=== PATIENT | male | born 1980 | race Two or more races ===

== ENCOUNTER 2018-09-05 12:06 | Emergency (ER) | payer SELFPAY ==
[2018-09-05] MEDS ORDERED: FAMOTIDINE INJ/PF 20 MG/2 ML SDV IV ONE (12:13)
[2018-09-05] MEDS ORDERED: DEXAMETHASONE SOD PHOS INJ 10 MG/1 ML VIAL IV ONE (12:13)
[2018-09-05] MEDS ORDERED: LEVETIRACETAM 1000 MG/NACL-ISO 1,000 MG/100 ML RTUPB IV ONE (12:14)
[2018-09-05] MEDS ORDERED: DIPHENHYDRAMINE HCL 50 MG/ML VIAL IV ONE (12:14)
--- NOTE | 2018-09-05 12:15 | ER Document Report ---
ED Oral Problem - General Chief Complaint: Swelling of Tongue Stated Complaint: TONGUE/THROAT SWELLING Time Seen by Provider: 09/05/18 12:12 Primary Care Provider: KVNG BO MD [NO LOCAL MD] - Follow up in 1 week TING PAULA DO [ASSOCIATE] - Follow up in 1 week Notes: This is a 37-year-old male brought into the emergency department for evaluation of tongue swelling. Patient awoke to have a extremely swollen tongue. Thinks that maybe he had a seizure. No prior history of seizures. Apparently patient had major trauma and was seen at trauma center a few years ago. Family members state that he had significant head injuries and neck injuries at that time. They think that he may be having seizures. He has been observed at the house twitching on occasions. Patient denies any other trauma. Denies any history of bleeding or other issues. - HPI Patient complains to provider of: Other - Swelling to the tongue. Quality of pain: Throbbing Severity: Moderate Pain Level: 3 Associated symptoms: Other - Significant bruising and swelling to the tongue with swelling. - Related Data Allergies/Adverse Reactions: Olives Allergy (Uncoded 09/05/18 12:19) Past Medical History - General Information source: Patient - Social History Smoking Status: Former Smoker Frequency of alcohol use: None Drug Abuse: None Lives with: Family Family History: Reviewed & Not Pertinent - Medical History Medical History: Negative Review of Systems - Review of Systems Notes: Constitutional: denies: Chills, Diaphoresis, Fever, Malaise, Weakness EENT: denies: Eye discharge, Blurred vision, Tearing, Double vision, Nose congestion, Nose discharge, Throat swelling, + significant for tongue swelling. Positive mouth pain Cardiovascular: denies: Palpitations, Heart racing, Orthopnea, Dyspnea, Chest pain Respiratory: denies: Cough, Hurts to breathe, Wheezing, Shortness of breath Gastrointestinal: denies: Abdominal pain, Diarrhea, Nausea, Vomiting, Black stools, bright red blood in stool Genitourinary: denies: Burning, Dysuria, Discharge, Frequency, Flank pain, Hematuria Musculoskeletal: denies: Joint pain, Joint swelling, Muscle pain, Muscle stiffness, back pain Hematologic/Lymphatic: denies: Anemia, Easy bleeding, Easy bruising, Blood clots Neurological/Psychological: denies: Confusion, Dementia, Depression, Loss of consciousness.? Seizures Skin: No lesions, no masses, no skin breakdown, no abscesses Physical Exam - Vital signs Vitals: Pulse Resp BP Pulse Ox 78 14 144/98 H 95 09/05/18 12:19 09/05/18 12:19 09/05/18 12:19 09/05/18 12:19 Interpretation: Normal - General General appearance: Appears well, Alert - HEENT Head: Normocephalic, Atraumatic Eyes: Normal Pupils: PERRL Notes: The posterior pharynx is normal. The tongue demonstrates marketed edema mostly on the left side with bruising and swelling. Appears traumatic. There is no swelling under the tongue. - Respiratory Respiratory status: No respiratory distress Chest status: Nontender Breath sounds: Normal Chest palpation: Normal - Cardiovascular Rhythm: Regular Heart sounds: Normal auscultation Murmur: No - Abdominal Inspection: Normal Distension: No distension Bowel sounds: Normal Tenderness: Nontender Organomegaly: No organomegaly - Back Back: Normal, Nontender - Extremities General upper extremity: Normal inspection, Nontender, Normal color, Normal ROM, Normal temperature General lower extremity: Normal inspection, Nontender, Normal color, Normal ROM, Normal temperature, Normal weight bearing. No: Kia's sign - Neurological Neuro grossly intact: Yes Cognition: Normal Orientation: AAOx4 John Coma Scale Eye Opening: Spontaneous [place] Coma Scale Verbal: Oriented John Coma Scale Motor: Obeys Commands John Coma Scale Total: 15 Speech: Normal Motor strength normal: LUE, RUE, LLE, RLE Sensory: Normal - Psychological Associated symptoms: Normal affect, Normal mood - Skin Skin Temperature: Warm Skin Moisture: Dry Skin Color: Normal Course - Re-evaluation Re-evalutation: 09/05/18 13:36 Patient potentially had a seizure and bit his tongue. With his reported history of head trauma it is possible. Due to the type of injury I am seeing to his tongue more likely this was a bite injury. I treating to be safe with typical angioedema type medications but more likely this is just a traumatic injury to the tongue. Will consult with ENT. We will get imaging study of the brain and the soft tissues of the face and neck. 09/05/18 13:37 Laboratory 09/05/18 09/05/18 09/05/18 12:15 12:15 12:15 WBC 15.7 H RBC 4.66 Hgb 15.3 Hct 44.7 MCV 96 MCH 32.8 MCHC 34.2 RDW 14.0 Plt Count 240 Seg Neutrophils % 85.1 H Lymphocytes % 9.0 L Monocytes % 5.3 Eosinophils % 0.3 Basophils % 0.3 Absolute Neutrophils 13.4 H Absolute Lymphocytes 1.4 Absolute Monocytes 0.8 Absolute Eosinophils 0.0 Absolute Basophils 0.0 PT 12.4 INR 0.88 APTT 29.7 Sodium 146.5 H Potassium 4.2 Chloride 107 Carbon Dioxide 26 Anion Gap 14 BUN 13 Creatinine 1.11 Est GFR ( Amer) > 60 Est GFR (Non-Af Amer) > 60 Glucose 113 H Calcium 10.3 H Total Bilirubin 0.5 Direct Bilirubin 0.3 Neonat Total Bilirubin Not Reportable Neonat Direct Bilirubin Not Reportable Neonat Indirect Bili Not Reportable AST 53 ALT 53 Alkaline Phosphatase 84 Total Protein 8.3 H Albumin 5.0 I have spoken to ENT, Dr. Paula. He has reviewed the films. He does recommend proceed with outpatient steroids, antibiotics. I have given him an initial dose of IV antibiotics and Keppra here. In the absence of any trauma with the bite to the tongue that potential for seizure is high. I have started on the seizure medicine. Patient will need to be seen outpatient neurologist. I have recommended that he do not drive. Take the antibiotics and the steroids as instructed. Incidentally, a abnormal finding on CT scan of the thyroid was r evealed. I have ordered thyroid function studies. I will order an outpatient ultrasound of the thyroid. Dr. Paula will follow up as an outpatient in 2 weeks - Vital Signs Vital signs: Temp Pulse Resp BP Pulse Ox 78 20 132/83 H 94 09/05/18 12:19 09/05/18 14:23 09/05/18 14:23 09/05/18 14:23 - Laboratory Result Diagrams: 09/05/18 12:15 09/05/18 12:15 Laboratory results interpreted by me: 09/05/18 09/05/18 12:15 12:15 WBC 15.7 H Seg Neutrophils % 85.1 H Lymphocytes % 9.0 L Absolute Neutrophils 13.4 H Sodium 146.5 H Glucose 113 H Calcium 10.3 H Total Protein 8.3 H Discharge - Discharge Clinical Impression: Ulceration (traumatic) of tongue, Seizure-like activity Condition: Good Disposition: HOME, SELF-CARE Instructions: New Seizure ([facility]), Oral Laceration, Not Sutured ([facility]) Prescriptions: Amox Tr/Potassium Clavulanate [Augmentin 875-125 Tablet] 1 tab PO BID 7 Days #14 tablet Dexamethasone [Decadron 4 Mg Tablet] 8 mg PO DAILY 3 Days #6 tablet Levetiracetam [Keppra 500 mg Tablet] 500 mg PO Q12 30 Days #60 tablet Forms: Follow-Up Radiology Testing Referrals: TING PAULA DO [ASSOCIATE] - Follow up in 1 week KVNG BO MD [NO LOCAL MD] - Follow up in 1 week
[2018-09-05 12:29] LABS: ABSOLUTE LYMPHOCYTES (AUTO) 1.4 10^3/uL (0.5-4.7); ABSOLUTE MONOCYTES (AUTO) 0.8 10^3/uL (0.1-1.4); ABSOLUTE NEUT (AUTO) 13.4 10^3/uL (1.7-8.2); BASOPHILS % (AUTO) 0.3 % (0-2); EOSINOPHILS % (AUTO) 0.3 % (0-6); HEMATOCRIT 44.7 % (37.9-51.0); HEMOGLOBIN 15.3 g/dL (13.5-17.0); MEAN CORPUSCULAR HEMOGLOBIN 32.8 pg (27.0-33.4); MEAN CORPUSCULAR HGB CONC 34.2 g/dL (32.0-36.0); MEAN CORPUSCULAR VOLUME 96 fl (80-97); MONOCYTES % (AUTO) 5.3 % (3-13); PLATELET COUNT 240 10^3/uL (150-450); RED BLOOD COUNT 4.66 10^6/uL (4.35-5.55); SEGMENTED NEUTROPHILS % (AUTO) 85.1 % (42-78); TOTAL CELLS COUNTED % (AUTO) 100 %; WHITE BLOOD COUNT 15.7 10^3/uL (4.0-10.5)
[2018-09-05 12:33] LABS: INTERNATIONAL RATION (INR) 0.88; PARTIAL THROMBOPLASTIN TIME 29.7 SEC (23.5-35.8); PROTHROMBIN TIME 12.4 SEC (11.4-15.4)
[2018-09-05 12:52] LABS: ALANINE AMINOTRANSFERASE 53 U/L (21-72); ALKALINE PHOSPHATASE 84 U/L (38-126); ANION GAP 14 (5-19); ASPARTATE AMINO TRANSFERASE 53 U/L (17-59); BILIRUBIN,DIRECT 0.3 mg/dL (0.0-0.4); BILIRUBIN,TOTAL 0.5 mg/dL (0.2-1.3); BLOOD UREA NITROGEN 13 mg/dL (7-20); CALCIUM 10.3 mg/dL (8.4-10.2); CARBON DIOXIDE 26 mmol/L (22-30); CHLORIDE 107 mmol/L (98-107); GLUCOSE 113 mg/dL (75-110); POTASSIUM 4.2 mmol/L (3.6-5.0); SODIUM 146.5 mmol/L (137-145); TOTAL PROTEIN 8.3 g/dL (6.3-8.2)
[2018-09-05] MEDS ORDERED: CEFTRIAXONE 1 GM/D5W RTU 1 GM/50 ML RTUPB IV ONE (14:09)
--- NOTE | 2018-09-05 14:11 | RADIOLOGY REPORT (SQ) ---
EXAM DESCRIPTION: CT HEAD WITHOUT COMPLETED DATE/TIME: 09/05/2018 1:51 pm REASON FOR STUDY: swollen tongue COMPARISON: None. TECHNIQUE: Axial images acquired through the brain without intravenous contrast. Images reviewed wi th bone, brain and subdural windows. Additional sagittal and coronal reconstructions were generated. Images stored on PACS. All CT scanners at this facility use dose modulation, iterative reconstruction, and/or weight based d osing when appropriate to reduce radiation dose to as low as reasonably achievable (ALARA). [facility]: Dose Right [facility]: CareDose [facility]: Dose Right [facility]: Teradose 4D [facility]: [employer] RADIATION DOSE: CT Rad equipment meets quality standard of care and radiation dose reduction techniq ues were employed. CTDIvol: 53.2 mGy. DLP: 1070 mGy-cm. mGy. LIMITATIONS: None. FINDINGS: VENTRICLES: Normal size and contour. CEREBRUM: No masses. No hemorrhage. No midline shift. No evidence for acute infarction. Normal gra y/white matter differentiation. No areas of low density in the white matter. CEREBELLUM: No masses. No hemorrhage. No alteration of density. No evidence for acute infarction. EXTRAAXIAL SPACES: No fluid collections. No masses. ORBITS AND GLOBE: No intra- or extraconal masses. Normal contour of globe without masses. CALVARIUM: No fracture. PARANASAL SINUSES: No fluid or mucosal thickening. SOFT TISSUES: No mass or hematoma. 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 IMPRESSION: 1. No acute intracranial pathology. 2. 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 EVIDENCE OF ACUTE STROKE: NO. COMMENT: Quality ID # 436: Final reports with documentation of one or more dose reduction techniques (e.g., Automated exposure control, adjustment of the mA and/or kV according to patient size, use of iterative reconstruction technique) TECHNICAL DOCUMENTATION: JOB ID: [id number] [employer]- All Rights Reserved Reading location - IP/workstation name: [email or web address]
--- NOTE | 2018-09-05 14:22 | RADIOLOGY REPORT (SQ) ---
EXAM DESCRIPTION: CT SOFT TISSUE NECK WITH COMPLETED DATE/TIME: 09/05/2018 1:51 pm REASON FOR STUDY: swollen tongue COMPARISON: None. TECHNIQUE: Post IV contrasted scanning from skull base through lung apices with review of bone, soft tissue and lung windows. Reconstructed coronal and sagittal MPR images reviewed. All images stored on PACS. All CT scanners at this facility use dose modulation, iterative reconstruction, and/or weight based d osing when appropriate to reduce radiation dose to as low as reasonably achievable (ALARA). [facility]: Dose Right [facility]: CareDose [facility]: Dose Right [facility]: Teradose 4D [facility]: [employer] CONTRAST TYPE AND DOSE: contrast/concentration: Isovue 350.00 mg/ml; Total Contrast Delivered: 75.0 ml; Total Saline Delivered: 55.0 ml RENAL FUNCTION: None required. The patient is less than 50 years old. RADIATION DOSE: CT Rad equipment meets quality standard of care and radiation dose reduction techniq ues were employed. CTDIvol: 18.4 mGy. DLP: 586 mGy-cm. . LIMITATIONS: None. FINDINGS: SKULL BASE: Intact. MAJOR SALIVARY GLANDS: No solid or cystic masses. No inflammatory changes. LYMPHADENOPATHY: No adenopathy. MUCOSAL MASSES OR ASYMMETRY: No mucosal masses or asymmetry. LARYNX/CORDS: No abnormal findings. VASCULAR STRUCTURES: The major vessels are patent. LUNG APICES: Clear. 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 There is a pin or nail like metallic foreign body embedded within the righ t aspect of the mandibular body (series 3, image 53) and additionally within the left aspect of the m axilla (series 3, image 30). THYROID: Normal size. No masses. PARANASAL SINUSES: Clear. OTHER: The tongue is enlarged and edematous appearing. No evidence of focal fluid collection. IMPRESSION: 1. The tongue is enlarged and edematous appearing, consistent with nonspecific infectio us or inflammatory glossitis. No evidence of focal fluid collection. 2. There is a pin or nail like metallic foreign body embedded within the right aspect of the mandibu lar body (series 3, image 53) and additionally within the left aspect of the maxilla (series 3, image 30), of uncertain significance. 3. 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 TECHNICAL DOCUMENTATION: JOB ID: [id number] Quality ID # [id number]: Final reports with documentation of one or more dose reduction techniques (e.g., Au tomated exposure control, adjustment of the mA and/or kV according to patient size, use of iterative reconstruction technique) 2010 [employer]- All Rights Reserved Reading location - IP/workstation name: [email or web address]
[2018-09-05 14:39] LABS: AMORPHOUS SEDIMENT,URINE TRACE /HPF; APPEARANCE,URINE CLOUDY; BILIRUBIN,URINE NEGATIVE (NEGATIVE); COLOR,URINE YELLOW; GLUCOSE, URINE NEGATIVE (NEGATIVE); KETONES,URINE NEGATIVE (NEGATIVE); LEUKOCYTE ESTERASE,URINE NEGATIVE (NEGATIVE); NITRITE,URINE NEGATIVE (NEGATIVE); PROTEIN,URINE NEGATIVE (NEGATIVE); UROBILINOGEN,URINE NEGATIVE mg/dL (<2.0)
[2018-09-05 14:49] LABS: URINE AMPHETAMINES SCREEN NEGATIVE; URINE BARBITURATES SCREEN NEGATIVE; URINE BENZODIAZEPINES SCREEN NEGATIVE; URINE COCAINE SCREEN NEGATIVE; URINE MARIJUANA (THC) SCREEN UNCONFIRMED POSITIVE; URINE METHADONE SCREEN NEGATIVE; URINE PHENCYCLIDINE SCREEN NEGATIVE
[2018-09-05 15:06] VITALS: BP 133/74
[2018-09-05 15:10] LABS: FREE T3 4.32 pg/mL (2.77-5.27); FREE T4 (FREE THYROXINE) 0.85 ng/dL (0.78-2.19)
[2018-09-05 15:24] LABS: THYROID STIMULATING HORMONE 2.49 uIU/mL (0.47-4.68)
== END 2018-09-05 15:06 | disposition home or self-care (01) ==
LOC: ER 12:06
DX: K14.0 Glossitis (principal); R56.9 Unspecified convulsions; R22.0 Localized swelling, mass and lump, head; Z87.891 Personal history of nicotine dependence
CPT/HCPCS: 99284; 96375; 96365; 96367; 36415; 84439; 84443; 85025; 85610; 85730; 80053; 81001; 80307; 84481; 70450; 70491; J1200; S0028; J0696; J1100; J1953

== ENCOUNTER 2019-05-14 20:24 | Emergency (ER) | payer SELFPAY ==
--- NOTE | 2019-05-14 20:34 | ER Document Report ---
ED Medical Screen (RME) - General Chief Complaint: Syncope Stated Complaint: POSSIBLE SEIZURES/BODY TANGLING Time Seen by Provider: 05/14/19 20:28 Mode of Arrival: Ambulatory Information source: Patient Notes: 38-year-old male presents to ED for complaint of possible seizures 4 days ago. He states he woke up in his bed on the floor with his tongue all chewed up and blood all over his shirt. He states he has had numbness and tingling all over both sides of his face arms legs and body that is getting worse so is coming into the emergency room to make sure that he is okay. He states he had a seizure in August and he is on Keppra. He states he took it for the first 3 days after he got out of the hospital for the seizure in August and then did not take it anymore until 4 days ago after he had a seizure. He states he has been drinking 3 beers a day every day and is had beer since he started back up on the Keppra 2 days ago but has not had any since then. He states he did not know he could not drink beer while taking the Keppra. He states about a month ago he felt some pain in his left lower quadrant and then he developed a bulge in that area. He has not gotten it checked out since then. I have greeted and performed a rapid initial assessment of this patient. A comprehensive ED assessment and evaluation of the patient, analysis of test results and completion of medical decision making process will be conducted by an additional ED providers. TRAVEL OUTSIDE OF THE [place] IN LAST 30 DAYS: No - Related Data Allergies/Adverse Reactions: Olives Allergy (Uncoded 09/05/18 12:19) Past Medical History Renal/ Medical History: Denies: Hx Peritoneal Dialysis Past Surgical History: Reports: Hx Orthopedic Surgery
[2019-05-14] MEDS ORDERED: NORMAL SALINE 1000 ML 1,000 ML IV ONE (20:45)
[2019-05-14 21:07] LABS: ABSOLUTE EOSINOPHILS # (AUTO) 0.1 10^3/uL (0.0-0.6); ABSOLUTE LYMPHOCYTES (AUTO) 2.6 10^3/uL (0.5-4.7); ABSOLUTE MONOCYTES (AUTO) 0.6 10^3/uL (0.1-1.4); ABSOLUTE NEUT (AUTO) 5.4 10^3/uL (1.7-8.2); BASOPHILS % (AUTO) 0.5 % (0-2); EOSINOPHILS % (AUTO) 1.5 % (0-6); HEMATOCRIT 42.1 % (37.9-51.0); HEMOGLOBIN 14.8 g/dL (13.5-17.0); LYMPHOCYTES % (AUTO) 30.1 % (13-45); MEAN CORPUSCULAR HEMOGLOBIN 33.4 pg (27.0-33.4); MEAN CORPUSCULAR HGB CONC 35.2 g/dL (32.0-36.0); MEAN CORPUSCULAR VOLUME 95 fl (80-97); MONOCYTES % (AUTO) 6.7 % (3-13); PLATELET COUNT 233 10^3/uL (150-450); RED BLOOD COUNT 4.44 10^6/uL (4.35-5.55); RED CELL DISTRIBUTION WIDTH 13.7 % (11.5-14.0); SEGMENTED NEUTROPHILS % (AUTO) 61.2 % (42-78); TOTAL CELLS COUNTED % (AUTO) 100 %; WHITE BLOOD COUNT 8.8 10^3/uL (4.0-10.5)
[2019-05-14 21:23] LABS: ALBUMIN 4.3 g/dL (3.5-5.0); ALKALINE PHOSPHATASE 72 U/L (38-126); ANION GAP 9 (5-19); ASPARTATE AMINO TRANSFERASE 32 U/L (17-59); BILIRUBIN,TOTAL 0.3 mg/dL (0.2-1.3); BLOOD UREA NITROGEN 10 mg/dL (7-20); CALCIUM 9.3 mg/dL (8.4-10.2); CARBON DIOXIDE 24 mmol/L (22-30); CHLORIDE 107 mmol/L (98-107); GLUCOSE 110 mg/dL (75-110); POTASSIUM 3.7 mmol/L (3.6-5.0); TOTAL PROTEIN 7.3 g/dL (6.3-8.2)
[2019-05-14 21:30] LABS: ALCOHOL < 10 mg/dL (NONE DETECTED)
--- NOTE | 2019-05-14 21:30 | ER Document Report ---
ED General - General Chief Complaint: Probable Seizure Stated Complaint: POSSIBLE SEIZURES/BODY TANGLING Time Seen by Provider: 05/14/19 20:28 Primary Care Provider: BEATRICE BRIGHT MD [COMMUNITY BASED STAFF] - Follow up as needed CHINO VERGARA MD [ACTIVE STAFF] - Follow up as needed Mode of Arrival: Ambulatory Notes: CHIEF COMPLAINT: Evaluation after possible seizure 4 days ago HPI: 38-year-old male presenting to the emergency department complaining of possible seizure 4 days ago. Patient states he had a seizure in August last year and was to be on Keppra but he has not continued this medication. Patient states he does drink 3 beers a day. Patient states that he woke up from sleep with blood in his mouth and on his tongue and feels that he had bitten his tongue. Does not recall the seizure. Does not recall specifically being incontinent. Patient states he did have Keppra at home and has been taking the medication for the last 2 days but he feels "jumpy" and concerned he will have another seizure. He has not followed up with a primary care provider or neurologist in the last year for evaluation of seizures ROS: See HPI - all other systems were reviewed and are otherwise negative Constitutional: no fever Eyes: no drainage, no blurred vision ENT: no runny nose, no sore throat, positive tongue pain Cardiovascular: no chest pain Resp: no SOB, no cough GI: no vomiting, no diarrhea, no abdominal pain : no dysuria Integumentary: no rash Allergy: no hives Musculoskeletal: no extremity pain or swelling Neurological: + numbness/tingling, no weakness MEDICATIONS: I agree with the patient medications as charted by the RN. ALLERGIES: I agree with the allergies as charted by the RN. PAST MEDICAL HISTORY/PAST SURGICAL HISTORY: Reviewed and agree as charted by RN. SOCIAL HISTORY: Reviewed and agree as charted by RN. FAMILY HISTORY: No significant familial comorbid conditions directly related to patient complaint EXAM: Reviewed vital signs as charted by RN. CONSTITUTIONAL: Alert and oriented and responds appropriately to questions. Well-appearing; well-nourished. Patient is very anxious and hyperventilating HEAD: Normocephalic; atraumatic EYES: PERRL; Conjunctivae clear, sclerae non-icteric ENT: normal nose; no rhinorrhea; moist mucous membranes; pharynx without lesions noted, no uvula edema or deviation, no tonsillar hypertrophy, phonation normal. There are 2 small wounds on the lateral aspects of the tongue bilateral without visible edema redness or active bleeding NECK: Supple without meningismus; non-tender; no cervical lymphadenopathy, no masses CARD: RRR; no murmurs, no clicks, no rubs, no gallops; symmetric distal pulses RESP: Normal chest excursion without splinting or tachypnea; breath sounds clear and equal bilaterally; no wheezes, no rhonchi, no rales, pulse oximetry 98% on room air not hypoxic ABD/GI: Normal bowel sounds; non-distended; soft, non-tender, no rebound, no guarding; no palpable organomegaly or masses. BACK: The back appears normal and is non-tender to palpation, there is no CVA tenderness EXT: Normal ROM in all joints; non-tender to palpation; no cyanosis, no effusions, no edema SKIN: Normal color for age and race; warm; dry; good turgor; no acute lesions noted NEURO: Moves all extremities equally; Motor and sensory function intact PSYCH: The patient's mood and manner are anxious. Grooming and personal hygiene are appropriate. MDM: 38-year-old male who had a previous seizure approximately 7 months ago and was to be on Keppra has not been taking his medication and has instead been smoking marijuana and drinking alcohol. Patient had another seizure 4 days ago where he bit his tongue. No indication for sutures at this time. Spoke with the patient at length about seizures. He does not drive. He is very anxious and hyperventilating at this time. Will give a dose of Ativan. Initial screening labs by triage process. These do not show acute emergent abnormalities. Patient has Keppra at home he can likely continue on the medication at 500 mg a day. Did recommend the patient stop drinking, will prescribe Ativan 0.5 mg twice daily for the next 3 days to help with withdrawal. He will need to obtain a primary care provider or neurologist for further evaluation TRAVEL OUTSIDE OF THE [place] IN LAST 30 DAYS: No - Related Data Allergies/Adverse Reactions: Olives Allergy (Uncoded 09/05/18 12:19) Home Medications: keppra, ibuprofen Past Medical History - General Information source: Patient - Social History Smoking Status: Never Smoker Chew tobacco use (# tins/day): No Frequency of alcohol use: Heavy Drug Abuse: Marijuana Family History: Reviewed & Not Pertinent Patient has suicidal ideation: No Patient has homicidal ideation: No Neurological Medical History: Reports: Hx Seizures Renal/ Medical History: Denies: Hx Peritoneal Dialysis Past Surgical History: Reports: Hx Orthopedic Surgery Physical Exam - Vital signs Vitals: Temp Pulse Resp BP Pulse Ox 98.3 F 81 22 H 156/92 H 100 05/14/19 20:32 05/14/19 20:32 05/14/19 20:32 05/14/19 20:32 05/14/19 20:32 Course - Vital Signs Vital signs: Temp Pulse Resp BP Pulse Ox 98.3 F 81 12 128/89 H 99 05/14/19 20:32 05/14/19 20:32 05/14/19 22:01 05/14/19 22:01 05/14/19 22:01 - Laboratory Result Diagrams: 05/14/19 21:00 05/14/19 21:00 Laboratory results interpreted by me: 05/14/19 21:00 Valproic Acid < 10.0 L Discharge - Discharge Clinical Impression: Seizure, Alcoholism /alcohol abuse Tongue laceration Qualifiers: Encounter type: initial encounter Qualified Code(s): S01.512A - Laceration without foreign body of oral cavity, initial encounter Condition: Stable Disposition: HOME, SELF-CARE Additional Instructions: Continue to take the Keppra twice daily. Take the Ativan for the next 3 days stop drinking alcohol. Follow-up with a primary care provider and neurology for further evaluation and treatment call for appointment. Motrin or Tylenol for mouth discomfort, salt water rinses twice daily to help with healing of the wounds on the tongue Prescriptions: Lorazepam [Ativan 0.5 mg Tablet] 0.5 mg PO BID #10 tab Levetiracetam [Keppra 500 mg Tablet] 500 mg PO Q12 #60 tablet Referrals: CHINO VERGARA MD [ACTIVE STAFF] - Follow up as needed BEATRICE BRIGHT MD [COMMUNITY BASED STAFF] - Follow up as needed
[2019-05-14] MEDS ORDERED: LORAZEPAM 1 MG TABLET PO ONE (21:42)
[2019-05-14 22:03] VITALS: BP 128/89
== END 2019-05-14 22:47 | disposition home or self-care (01) ==
LOC: ER 20:24
DX: S01.512A Laceration without foreign body of oral cavity, initial encounter (principal); R56.9 Unspecified convulsions; F10.10 Alcohol abuse, uncomplicated; R20.0 Anesthesia of skin; X58.XXXA Exposure to other specified factors, initial encounter; Z88.9 Allergy status to unspecified drugs, medicaments and biological substances
CPT/HCPCS: 36415; 80307; 83690; 85025; 80053; 84484; 80164; J7030; 96360; 99284

== ENCOUNTER 2019-05-15 11:34 | Emergency (ER) | payer SELFPAY ==
[2019-05-15 11:57] VITALS: BP 138/102
--- NOTE | 2019-05-15 12:48 | ER Document Report ---
ED Medical Screen (RME) - General Chief Complaint: Urinary Problem Stated Complaint: BLOOD IN URINE Time Seen by Provider: 05/15/19 12:40 Notes: Patient is a 38-year-old male who presents emergency department with a chief complaint of blood in urine. Patient reports this morning after his fourth void he was ending his stream when he noticed bright red blood. Patient denies pain. Patient denies testicular penile pain. Patient denies flank pain. Patient denies fever. Patient reports he has not urinated since then as he came straight to the emergency department. Patient denies nausea, vomiting or diarrhea. Patient states that he has no concern for sexually transmitted diseases. TRAVEL OUTSIDE OF THE [place] IN LAST 30 DAYS: No - Related Data Allergies/Adverse Reactions: No Known Drug Allergies Allergy (Verified 05/15/19 12:27) Olives Allergy (Uncoded 05/15/19 12:27) Home Medications: [facility] Past Medical History - Social History Chew tobacco use (# tins/day): No Frequency of alcohol use: None Drug Abuse: None Neurological Medical History: Reports: Hx Seizures Renal/ Medical History: Denies: Hx Peritoneal Dialysis Past Surgical History: Reports: Hx Orthopedic Surgery Physical Exam - Vital signs Vitals: Temp Pulse Resp BP Pulse Ox 98.5 F 62 18 138/102 H 99 05/15/19 11:54 05/15/19 11:54 05/15/19 11:54 05/15/19 11:54 05/15/19 11:54 Course - Re-evaluation Re-evalutation: 05/15/19 12:48 Patient nontoxic-appearing in triage without a tachycardia, fever or hypotension. Will start out with a urinalysis. - Vital Signs Vital signs: Temp Pulse Resp BP Pulse Ox 98.5 F 62 18 138/102 H 99 05/15/19 11:54 05/15/19 11:54 05/15/19 11:54 05/15/19 11:54 05/15/19 11:54
[2019-05-15 13:19] LABS: APPEARANCE,URINE CLEAR; BILIRUBIN,URINE NEGATIVE (NEGATIVE); COLOR,URINE YELLOW; GLUCOSE, URINE NEGATIVE (NEGATIVE); KETONES,URINE NEGATIVE (NEGATIVE); LEUKOCYTE ESTERASE,URINE NEGATIVE (NEGATIVE); NITRITE,URINE NEGATIVE (NEGATIVE); PROTEIN,URINE NEGATIVE (NEGATIVE); URINE SPECIFIC GRAVITY 1.012
--- NOTE | 2019-05-15 13:52 | ER Document Report ---
ED Medical Screen (RME) - General Chief Complaint: Urinary Problem Stated Complaint: BLOOD IN URINE Time Seen by Provider: 05/15/19 12:40 Notes: Patient is a 38-year-old male who presents emergency department with a chief complaint of blood in urine. Patient reports this morning after his fourth void he was ending his stream when he noticed bright red blood. Patient denies pain. Patient denies testicular penile pain. Patient denies flank pain. Patient denies fever. Patient reports he has not urinated since then as he came straight to the emergency department. Patient denies nausea, vomiting or diarrhea. Patient states that he has no concern for sexually transmitted diseases. TRAVEL OUTSIDE OF THE [place] IN LAST 30 DAYS: No - Related Data Allergies/Adverse Reactions: No Known Drug Allergies Allergy (Verified 05/15/19 12:27) Olives Allergy (Uncoded 05/15/19 12:27) Home Medications: [facility] Past Medical History - Social History Chew tobacco use (# tins/day): No Frequency of alcohol use: None Drug Abuse: None Neurological Medical History: Reports: Hx Seizures Renal/ Medical History: Denies: Hx Peritoneal Dialysis Past Surgical History: Reports: Hx Orthopedic Surgery Physical Exam - Vital signs Vitals: Temp Pulse Resp BP Pulse Ox 98.5 F 62 18 138/102 H 99 05/15/19 11:54 05/15/19 11:54 05/15/19 11:54 05/15/19 11:54 05/15/19 11:54 Course - Re-evaluation Re-evalutation: 05/15/19 13:52 Patient's urinalysis was essentially unremarkable. It did show some blood with RBCs. Patient continues to state that every time he urinates he does notice blood towards the end of his void. Patient reports he is also feeling an emptiness and discomfort to his upper abdomen. Will obtain basic labs. Patient denies back pain or flank pain. I have greeted and performed a rapid initial assessment of this patient. A comprehensive ED assessment and evaluation of the patient, analysis of test results and completion of the medical decision making process will be conducted by additional ED providers. - Vital Signs Vital signs: Temp Pulse Resp BP Pulse Ox 98.5 F 62 18 138/102 H 99 05/15/19 11:54 05/15/19 11:54 05/15/19 11:54 05/15/19 11:54 05/15/19 11:54 - Laboratory Laboratory results interpreted by me: 05/15/19 13:01 Urine Blood SMALL H Urine Urobilinogen 2.0 H 05/15/19 13:52 Laboratory 05/15/19 13:01 Urine Color YELLOW Urine Appearance CLEAR Urine pH 7.0 Ur Specific [place] 1.012 Urine Protein NEGATIVE Urine Glucose (UA) NEGATIVE Urine Ketones NEGATIVE Urine Blood SMALL H Urine Nitrite NEGATIVE Urine Bilirubin NEGATIVE Urine Urobilinogen 2.0 H Ur Leukocyte Esterase NEGATIVE Urine WBC (Auto) 3 Urine RBC (Auto) 16 U Hyaline Cast (Auto) 1 Urine Mucus (Auto) RARE Urine Ascorbic Acid NEGATIVE
[2019-05-15 14:26] LABS: ABSOLUTE EOSINOPHILS # (AUTO) 0.1 10^3/uL (0.0-0.6); ABSOLUTE LYMPHOCYTES (AUTO) 3.1 10^3/uL (0.5-4.7); ABSOLUTE MONOCYTES (AUTO) 0.6 10^3/uL (0.1-1.4); ABSOLUTE NEUT (AUTO) 5.2 10^3/uL (1.7-8.2); BASOPHILS % (AUTO) 0.4 % (0-2); EOSINOPHILS % (AUTO) 1.6 % (0-6); HEMATOCRIT 43.7 % (37.9-51.0); HEMOGLOBIN 15.4 g/dL (13.5-17.0); LYMPHOCYTES % (AUTO) 34.4 % (13-45); MEAN CORPUSCULAR HEMOGLOBIN 33.6 pg (27.0-33.4); MEAN CORPUSCULAR HGB CONC 35.2 g/dL (32.0-36.0); MEAN CORPUSCULAR VOLUME 96 fl (80-97); MONOCYTES % (AUTO) 6.4 % (3-13); PLATELET COUNT 242 10^3/uL (150-450); RED BLOOD COUNT 4.58 10^6/uL (4.35-5.55); RED CELL DISTRIBUTION WIDTH 13.8 % (11.5-14.0); SEGMENTED NEUTROPHILS % (AUTO) 57.2 % (42-78); TOTAL CELLS COUNTED % (AUTO) 100 %
[2019-05-15 14:41] LABS: ALBUMIN 4.5 g/dL (3.5-5.0); ALKALINE PHOSPHATASE 69 U/L (38-126); ANION GAP 8 (5-19); ASPARTATE AMINO TRANSFERASE 31 U/L (17-59); BILIRUBIN,TOTAL 0.7 mg/dL (0.2-1.3); BLOOD UREA NITROGEN 8 mg/dL (7-20); CALCIUM 9.9 mg/dL (8.4-10.2); CARBON DIOXIDE 27 mmol/L (22-30); CHLORIDE 106 mmol/L (98-107); GLUCOSE 86 mg/dL (75-110); TOTAL PROTEIN 7.6 g/dL (6.3-8.2)
[2019-05-15 14:50] LABS: POTASSIUM 4.8 mmol/L (3.6-5.0)
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
== END 2019-05-15 16:07 | disposition home or self-care (01) ==
LOC: ER 11:34
DX: R31.9 Hematuria, unspecified (principal); R39.198 Other difficulties with micturition; R10.10 Upper abdominal pain, unspecified; R56.9 Unspecified convulsions; Z79.899 Other long term (current) drug therapy
CPT/HCPCS: 36415; 80053; 81001; 83690; 85025; 99283

== ENCOUNTER 2019-09-08 16:05 | Emergency (ER) | payer SELFPAY ==
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
[2019-09-08 16:49] LABS: APPEARANCE,URINE CLEAR; BILIRUBIN,URINE NEGATIVE (NEGATIVE); COLOR,URINE YELLOW; GLUCOSE, URINE NEGATIVE (NEGATIVE); KETONES,URINE NEGATIVE (NEGATIVE); LEUKOCYTE ESTERASE,URINE NEGATIVE (NEGATIVE); NITRITE,URINE NEGATIVE (NEGATIVE); PROTEIN,URINE NEGATIVE (NEGATIVE); URINE SPECIFIC GRAVITY 1.018
[2019-09-08 16:55] LABS: ABSOLUTE EOSINOPHILS # (AUTO) 0.3 10^3/uL (0.0-0.6); ABSOLUTE LYMPHOCYTES (AUTO) 3.2 10^3/uL (0.5-4.7); ABSOLUTE MONOCYTES (AUTO) 0.8 10^3/uL (0.1-1.4); ABSOLUTE NEUT (AUTO) 6.2 10^3/uL (1.7-8.2); BASOPHILS % (AUTO) 0.3 % (0-2); EOSINOPHILS % (AUTO) 2.8 % (0-6); HEMATOCRIT 44.1 % (37.9-51.0); HEMOGLOBIN 15.1 g/dL (13.5-17.0); LYMPHOCYTES % (AUTO) 30.3 % (13-45); MEAN CORPUSCULAR HEMOGLOBIN 32.3 pg (27.0-33.4); MEAN CORPUSCULAR HGB CONC 34.3 g/dL (32.0-36.0); MEAN CORPUSCULAR VOLUME 94 fl (80-97); PLATELET COUNT 231 10^3/uL (150-450); RED BLOOD COUNT 4.69 10^6/uL (4.35-5.55); RED CELL DISTRIBUTION WIDTH 14.3 % (11.5-14.0); SEGMENTED NEUTROPHILS % (AUTO) 58.6 % (42-78); TOTAL CELLS COUNTED % (AUTO) 100 %; WHITE BLOOD COUNT 10.6 10^3/uL (4.0-10.5)
[2019-09-08 17:15] LABS: ALBUMIN 4.9 g/dL (3.5-5.0); ALKALINE PHOSPHATASE 77 U/L (38-126); ANION GAP 11 (5-19); ASPARTATE AMINO TRANSFERASE 39 U/L (17-59); BILIRUBIN,TOTAL 0.5 mg/dL (0.2-1.3); BLOOD UREA NITROGEN 10 mg/dL (7-20); CALCIUM 9.8 mg/dL (8.4-10.2); CARBON DIOXIDE 26 mmol/L (22-30); CHLORIDE 106 mmol/L (98-107); GLUCOSE 83 mg/dL (75-110); POTASSIUM 3.7 mmol/L (3.6-5.0); TOTAL PROTEIN 7.9 g/dL (6.3-8.2)
[2019-09-08] MEDS ORDERED: LEVETIRACETAM 1000 MG/NACL-ISO 1,000 MG/100 ML RTUPB IV ONE (18:12)
[2019-09-08] MEDS ORDERED: LORAZEPAM INJ 2 MG/1 ML VIAL IV ONE (18:13)
[2019-09-08] MEDS ORDERED: NORMAL SALINE 1000 ML 1,000 ML IV ONE (18:14)
[2019-09-08 20:33] LABS: URINE AMPHETAMINES SCREEN NEGATIVE; URINE BARBITURATES SCREEN NEGATIVE; URINE BENZODIAZEPINES SCREEN NEGATIVE; URINE COCAINE SCREEN NEGATIVE; URINE METHADONE SCREEN NEGATIVE; URINE PHENCYCLIDINE SCREEN NEGATIVE
[2019-09-08 20:37] LABS: URINE MARIJUANA (THC) SCREEN UNCONFIRMED POSITIVE
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
[2019-09-08 21:33] VITALS: BP 148/99
== END 2019-09-08 21:33 | disposition home or self-care (01) ==
LOC: ER 16:05
DX: G40.909 Epilepsy, unspecified, not intractable, without status epilepticus (principal); T42.6X6A Underdosing of other antiepileptic and sedative-hypnotic drugs, initial encounter; Z91.128 Patient's intentional underdosing of medication regimen for other reason; Z91.14 Patient's other noncompliance with medication regimen; R20.2 Paresthesia of skin; F12.10 Cannabis abuse, uncomplicated; Z91.018 Allergy to other foods
CPT/HCPCS: 99284; 96361; 96375; 96365; 36415; 80177; 85025; 80053; 81001; 80307; J2060; J7030; J1953